=== PATIENT | female | born 1955 | race Caucasian/White ===

== ENCOUNTER 2021-09-01 08:03 | Outpatient (CLI) | payer MEDICARE, SELFPAY ==
--- NOTE | ~2021-09-01 | DEXA_ITS ---
Bone Density Report Name: LUZ MARINA MCKEON Age: 66 Sex: Female Ethnicity: White Date of : 1955 Indication: postmenopausal; screening for osteoporosis; height loss; Referring Provider: NEHEMIAS Obando Study: Bone densitometry was performed. Exam Date: September 01, 2021 Accession number: [id number] Bone Density: Region BMD T-score Z-score Classification AP Spine(L1, L2, L3) 1.152 1.2 3.2 Normal Femoral Neck (Left) 0.754 -0.9 0.9 Normal Total Hip (Left) 0.940 0.0 1.4 Normal Femoral Neck (Right) 0.720 -1.2 0.5 Osteopenia Total Hip (Right) 0.869 -0.6 0.8 Normal Total Hip Mean 0.904 -0.3 1.1 Normal World Health Organization criteria for BMD impression classify patients as: Normal (T-score at or above -1.0), Osteopenia (T-score between -1.0 and -2.5), or Osteoporosis (T-score at or below -2.5). 10-year Fracture Risk(1): Major Osteoporotic Fracture 8.4% Hip Fracture 0.8% Reported Risk Factors: [place] (), Neck BMD=0.720, BMI=34.3 (1) FRAX(R) Version 3.08. Fracture probability calculated for an untreated patient. Fracture probability may be lower if the patient has received treatment. Previous Exams: Region Exam Age BMD T-score BMD Change BMD Change Date g/cm2 vs Baseline vs Previous Total Hip(Left) 09/01/2021 66 0.940 0.0 0.006 (0.6%) 0.006 (0.6%) 04/29/2018 63 0.934 -0.1 Total Hip(Right) 09/01/2021 66 0.869 -0.6 -0.025 (-2.8%) -0.025 (-2.8%) 04/29/2018 63 0.894 -0.4 *Denotes significance at 95% confidence level, LSC for Total Hip = 0.027 g/cm2 Clinical Information Provided by Patient: Has used the following medications: HRT (i.e. estrogen/hormone therapy), Vitamin D, Calcium Patient maximum height was 68 Menopause Age: 62 No regular weight bearing exercise Drinks caffeinated beverages Onset of menses at age 10 Number of children 3 Impression: The patient has low bone mass, based on the Right Femoral Neck T-score. The patient has an estimated ten-year risk of hip fracture of 0.8% and an estimated ten-year risk of major fracture of 8.4%, based on the WHO FRAX algorithm. No significant bone loss was observed. Discussion: BONE DENSITY IS LOW AT ONE OR MORE SKELETAL SITES. This patient's lowest T-score is low at one or more skeletal sites. It meets the World Health Organization's (WHO) criteria for ?low bone mass? (T-score between -1.0 and -2.5). The patient's 10-year risk of fracture as calculated by FRAX is less than the
--- NOTE | ~2021-09-01 | MM_ITS ---
EXAMINATION: MM screening sarah BI w migel HISTORY: Screening mammogram TECHNIQUE: Craniocaudal and mediolateral oblique 3-D tomosynthesis images were obtained and synthetic 2-D images were generated. CAD analysis was submitted and interpreted. COMPARISON: 03/27/2018 bilateral screening mammogram BREAST PARENCHYMAL COMPOSITION: There are scattered areas of fibroglandular density. FINDINGS: There is no evidence of suspicious mass, calcification, or architectural distortion to sugg est malignancy in either breast. There has been no suspicious interval change. IMPRESSION: 1. No mammographic evidence of malignancy. 2. Recommend routine screening mammography in one year. BI-RADS Category 1: Negative Reviewed, dictated and finalized at location A.
== END 2021-09-01 08:04 | disposition home or self-care (01) ==
PROVIDERS: PCP Family Medicine
DX: Z12.31 Encounter for screening mammogram for malignant neoplasm of breast (principal); Z78.0 Asymptomatic menopausal state; M85.851 Other specified disorders of bone density and structure, right thigh
CPT/HCPCS: 77063; 77067; 77080

== ENCOUNTER 2021-10-04 08:53 | Outpatient (CLI) | payer MEDICARE, SELFPAY ==
--- NOTE | ~2021-10-04 | MR_ITS ---
EXAMINATION: MR knee RT wo con DATE: 10/04/2021 09:41 INDICATION: Right knee pain TECHNIQUE: Magnetic resonance imaging (MRI) of the right knee was performed without intravenous contr ast. Sequences included coronal PD-weighted FSE, coronal PD-weighted FS FSE, sagittal T2-weighted FS E, sagittal PD-weighted FS FSE and axial PD weighted fat saturated FSE. COMPARISON: None. FINDINGS: Medial compartment: Medial meniscus is normal. Articular cartilage is normal. Lateral compartment: Complex lateral meniscal tear which includes a longitudinal horizontal tear plane extending to the juares perior articular surface of the anterior horn and body of the lateral meniscus transitioning to the i nferior articular surface at the posterior horn. There is an additional longitudinal vertical tear pl ane at the inner third of the posterior horn. Partial-thickness chondral ulceration at the anterior t o central weightbearing lateral femoral condyle. Additional partial thickness chondral ulceration in volving greater than 50% the cartilage thickness with chondral surface irregularity and underlying mi ld subarticular edema-like signal change at the posterolateral aspect of the lateral tibial plateau. Patellofemoral compartment: Deep chondral ulceration with underlying cortical irregularity and mild edema-like signal change acro ss much of the lateral trochlea. Mild partial-thickness cartilage loss at the trochlear groove. Parti al-thickness cartilage loss in place involving greater than 50% of the cartilage thickness and with t iny focus of subarticular edema-like signal change at the lateral patellar facet. Deep chondral fissu ring at the inferior aspect of the patellar apical ridge. Ligaments and tendons: Anterior and posterior cruciate ligaments are normal. The medial collateral ligament and fibular grover ateral ligament complex are normal. Minimal distal quadriceps tendinopathy with small enthesophytes a t the superficial side of the patellar insertion. The patellar tendon is normal. The visualized media l and lateral hamstring tendons as well as the iliotibial band are normal. Fluid: Small right knee joint effusion with scattered mild synovitis. No loose osteochondral bodies identifi ed. Mild prepatellar edema without discrete bursal fluid collection. Osseous/other: Bone alignment is normal. No fracture or pathologic marrow replacing process. IMPRESSION: 1. Complex lateral meniscal tear. 2. 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 Reviewed, dictated and finalized at location A. IMPRESSION: 1. Complex lateral meniscal tear. 2. Mild lateral compartment and mild to moderate patellofemoral compartment ost eoarthritis, both with regions of moderate and high-grade chondromalacia.
--- NOTE | ~2021-10-04 | XR_ITS ---
XR knee RT 3V DATE: 10/04/2021 09:59 INDICATION: Right knee pain TECHNIQUE: Boyle, AP and lateral views COMPARISON: None FINDINGS: There is prominent loss of lateral compartment joint space with periarticular spurring. The re is periarticular spurring and joint space narrowing at the patellofemoral joint. There is calcification of the quadriceps tendon near the insertion at the patella. No fracture or dislocation or joint effusion. No periosteal reaction or bone destruction. No radiopaq ue intra-articular loose body or chondrocalcinosis. No periosteal reaction or bone destruction. IMPRESSION: Moderate to moderately severe osteoarthritis at the lateral and patellofemoral compartmen ts Reviewed, dictated and finalized at location B. IMPRESSION: Moderate to moderately severe osteoarthritis at the lateral and pat ellofemoral compartments
== END 2021-10-04 08:54 ==
DX: G89.29 Other chronic pain (principal); M25.561 Pain in right knee; M17.11 Unilateral primary osteoarthritis, right knee; S83.281A Other tear of lateral meniscus, current injury, right knee, initial encounter; M94.261 Chondromalacia, right knee
CPT/HCPCS: 73562; 73721